=== PATIENT | female | born 1965 | race Two or more races ===

== ENCOUNTER 2019-11-21 18:43 | Inpatient (IN) | payer OTHER ==
[~2019-11-21] VITALS: Ht 147.3 cm; Wt 49.0 kg
--- NOTE | 2019-11-21 18:44 | NUR ---
IV LINE ESTABLISHED BLOOD DRAWN AND SENT TO LAB.
--- NOTE | 2019-11-21 18:45 | NUR ---
AT BEDSIDE FOR EVAL.
--- NOTE | 2019-11-21 18:52 | NUR ---
PT REC'D TO ER C/O DIZZNESS WHILE EATING DINNER SLURRED SPEECH WAS BROUGHT TO THE ER ALFRED DORSEY WITH PATIENT ABLE TO RESPOND . IV STARTED 19G RT AC LABS DRAWN SENT TO LAB AWAITING EVALUATION BY ER PROVIDER.
[2019-11-21 18:58] LABS: BASOPHILS # (AUTO) 0.1 /CMM (0.0-0.2); BASOPHILS % (AUTO) 1.2 % (0.0-2.0); EOSINOPHILS % (AUTO) 4.6 % (0.0-6.0); HEMATOCRIT 38 % (33-45); HEMOGLOBIN 12.6 g/dL (11.5-14.8); LYMPHOCYTES # (AUTO) 2.4 /CMM (0.8-4.8); LYMPHOCYTES % (AUTO) 35.6 % (20.0-44.0); MEAN CORPUSCULAR HGB CONC 33 g/dl (31.0-36.0); MEAN CORPUSCULAR VOLUME 90 fL (82-100); MONOCYTES # (AUTO) 0.5 /CMM (0.1-1.30); MONOCYTES % (AUTO) 6.7 % (2.0-12.0); NEUTROPHILS # (AUTO) 3.5 /CMM (1.8-8.9); NEUTROPHILS % (AUTO) 51.9 % (43.0-81.0); PLATELET COUNT (AUTO) 254 /CMM (150-450); WHITE BLOOD COUNT (AUTO) 6.7 K/uL (4.3-11.0)
[2019-11-21] MEDS ORDERED: PROGESTERONE PO (19:09)
--- NOTE | 2019-11-21 19:17 | NUR ---
PT REASSESSED. PT HAS NO MEDICAL COMPLAINTS AT THIS TIME. PT AAOX4, VSS, RESPIRATIONS EVEN AND UNLABORED ON RA W/ NAD NOTED. PT CONNECTED TO THE WOODS BOSS AND POX.
--- NOTE | 2019-11-21 19:18 | NUR ---
PT HAS NO NEUROLOGICAL DEFICITS.
[2019-11-21 19:21] LABS: CALCIUM, SERUM 9.3 mg/dL (8.5-10.1); CARBON DIOXIDE 29 mmol/L (21-32); CHLORIDE 100 mmol/L (98-107); CREATININE 0.7 mg/dL (0.6-1.3); GLUCOSE 172 mg/dL (74-106); POTASSIUM 3.4 mmol/L (3.5-5.1); SODIUM SERUM 138 mmol/L (136-145); UREA NITROGEN, BLOOD 12 mg/dL (7-18)
--- NOTE | 2019-11-21 19:21 | NUR ---
CALLED LAB FOR CT
[2019-11-21 19:27] LABS: ALANINE AMINOTRANSFERASE 21 U/L (12-78); ALKALINE PHOSPHATASE 63 U/L (46-116); ASPARTATE AMINOTRANSFERASE 14 U/L (15-37); BILIRUBIN,DIRECT 0.1 mg/dL (0.0-0.2); BILIRUBIN,TOTAL 0.2 mg/dL (0.2-1.0); TOTAL PROTEIN, SERUM 7.7 g/dL (6.4-8.2)
[2019-11-21] MEDS ORDERED: IV NS 0.9% 250 ML IV ONE (19:29)
[2019-11-21] MEDS ORDERED: IOHEXOL-350 100 ML VIAL IV ONE (19:29)
--- NOTE | 2019-11-21 19:34 | NUR ---
CALLED RADIOLOGY FOR CT
--- NOTE | 2019-11-21 19:35 | NUR ---
COVID SWAB COLLECTED AND SENT TO LAB
--- NOTE | 2019-11-21 19:38 | NUR ---
PT TAKEN TO RADIOLOGY FOR CT
--- NOTE | 2019-11-21 19:56 | NUR ---
PT BACK FROM RADIOLOGY
--- NOTE | 2019-11-21 20:54 | NUR ---
LAB CALLED COVID NEGATIVE
--- NOTE | 2019-11-21 20:57 | NUR ---
DR TINEO PAGED PER DR MONTES
[2019-11-21] MEDS ORDERED: CLOPIDOGREL BISULFATE 75 MG TABLET PO ONE (21:30)
[2019-11-21] MEDS ORDERED: CLOPIDOGREL BISULFATE 75 MG TABLET ONE (21:36)
--- NOTE | 2019-11-21 21:49 | NUR ---
PT TRANSFERRED TO ROOM IN STABLE CONDITION
[2019-11-21 21:50] VITALS: BP 104/57
--- NOTE | 2019-11-21 21:55 | NUR ---
RN ADMITTING NOTES PATIENT RECEIVED FROM ER VIA REUCLID ACCOMPANIED BY ER STAFF. PATIENT A/O X 4, AMBULATORY, STABLE ON RA. VITAL TAKEN. 104/ 57, HR 70, RR 18, T 98.1, O2SAT 100%. BELONGINGS ACCOUNTED FOR. SKIN ASSESSMENT DONE. TELE MONITOR PLACED. PATIENT ORIENTED TO ROOM AND STAFF. IV LOCATED ON R AC #18 PATENT AND INTACT. SAFETY PRECAUTIONS IN PLACE WITH BED IN LOWEST POSITION, CALL LIGHT WITHIN REACH, BREAKS ON, SIDE RAILS UP. WILL CONTINUE TO MONITOR THROUGHOUT THE NIGHT.
[2019-11-21] MEDS ORDERED: ACETAMINOPHEN 325 MG TABLET PO PRN (22:00)
[2019-11-21] MEDS ORDERED: SIMVASTATIN 20 MG TABLET PO SCH (22:00)
[2019-11-21] MEDS ORDERED: IV NS 0.9% 1,000 ML IV PRN (22:00)
[2019-11-21] MEDS: BLOOD SUGAR DIAGNOSTIC 1 EACH STRIP IN SCH (22:18)
[2019-11-22] VITALS: BP 96/56
[2019-11-22 04:00] VITALS: BP 92/58
[2019-11-22 06:29] LABS: APPEARANCE,URINE SL CLOUDY (CLEAR); BILIRUBIN,URINE NEGATIVE (NEGATIVE); BLOOD, URINE TRACE Ery/uL (NEGATIVE); COLOR,URINE YELLOW (YELLOW); KETONES,URINE NEGATIVE (NEGATIVE); LEUKOCYTE ESTERASE ,URINE NEGATIVE (NEGATIVE); NITRITE, URINE NEGATIVE (NEGATIVE); PH,URINE 7.5 (5.0-8.0); PROTEIN,URINE NEGATIVE (NEGATIVE); UGLUCOSE NEGATIVE (NEGATIVE); UROBILINOGEN,URINE 0.2 EU/dL (0.2)
--- NOTE | 2019-11-22 07:13 | NUR ---
RN CLOSING NOTES PATIENT IN BED RESTING A/O X 4. STABLE ON RA WITH BREATHING EVEN AND UNLABORED, NO SOB NOTED. NO SIGNS OF ACUTE DISTRESS. NO COMPLAINTS OF PAIN OR DISCOMFORT AT THE MOMENT. TELE MONITOR READING SR. IV LOCATED ON R AC #18 RUNNING NS @ 75 ML/HR. PATIENT KEPT NPO THROUGHOUT THE NIGHT. ALL NEEDS ATTENDED TO. SAFETY PRECAUTIONS IN PLACE WITH BED IN LOWEST POSITION, CALL LIGHT WITHIN REACH, BREAKS ON, SIDE RAILS UP. WILL ENDORSE TO ONCOMING SHIFT ABOUT SHRUTHI.
[2019-11-22] MEDS: BLOOD SUGAR DIAGNOSTIC 1 EACH STRIP IN SCH ×2 (07:14→12:02)
[2019-11-22 08:00] VITALS: BP 100/70
--- NOTE | 2019-11-22 08:00 | NUR ---
rn notes received patient in the bed a/o x4, stable , tele monitor sr-[id number], refused pain. neuro check done, v/s taken wnl. Infusing ns at 75 ml/hr, patient ambulatory self care. safety precaution maintained all the time.
--- NOTE | 2019-11-22 08:00 | NUR ---
rn notes administered Plavix po as scheduled. per hospitalist OK to administer medication after patient passing nursing swallow test.
[2019-11-22 08:20] LABS: RBC,URINE 0-2 /HPF (0-2)
[2019-11-22 08:21] LABS: BACTERIA,URINE Rare /HPF (None Seen); SQUAMOUS EPITHELIAL CELL,UR Few /HPF (None Seen); WBC,URINE 0-2 /HPF (0-3)
[2019-11-22 08:30] LABS: BASOPHILS # (AUTO) 0.1 /CMM (0.0-0.2); BASOPHILS % (AUTO) 1.2 % (0.0-2.0); EOSINOPHILS % (AUTO) 9.1 % (0.0-6.0); HEMATOCRIT 37 % (33-45); LYMPHOCYTES # (AUTO) 1.6 /CMM (0.8-4.8); LYMPHOCYTES % (AUTO) 34.8 % (20.0-44.0); MEAN CORPUSCULAR HGB CONC 32 g/dl (31.0-36.0); MEAN CORPUSCULAR VOLUME 90 fL (82-100); MONOCYTES # (AUTO) 0.3 /CMM (0.1-1.30); MONOCYTES % (AUTO) 6.5 % (2.0-12.0); NEUTROPHILS # (AUTO) 2.3 /CMM (1.8-8.9); NEUTROPHILS % (AUTO) 48.4 % (43.0-81.0); PLATELET COUNT (AUTO) 244 /CMM (150-450); RED BLOOD CELL COUNT(AUTO) 4.18 MIL/uL (4.0-5.2); WHITE BLOOD COUNT (AUTO) 4.7 K/uL (4.3-11.0)
--- NOTE | 2019-11-22 08:46 | NUR ---
rn notes patient getting ECHO at this time.
[2019-11-22 08:52] LABS: CARBON DIOXIDE 27 mmol/L (21-32); CHLORIDE 109 mmol/L (98-107); CREATININE 0.6 mg/dL (0.6-1.3); GLUCOSE 96 mg/dL (74-106); POTASSIUM 4.2 mmol/L (3.5-5.1); SODIUM SERUM 143 mmol/L (136-145); UREA NITROGEN, BLOOD 8 mg/dL (7-18)
[2019-11-22] MEDS ORDERED: CLOPIDOGREL BISULFATE 75 MG TABLET PO SCH (09:00)
[2019-11-22 09:02] LABS: CHOLESTEROL 202 mg/dL (<200); HDL CHOLESTEROL 79 mg/dL (40-60); LDL 103 mg/dL (0-99); THYROID STIMULATING HORMONE 1.751 uIU/mL (0.358-3.74); TRIGLYCERIDES 47 mg/dL (30-150)
--- NOTE | 2019-11-22 09:35 | NUR ---
rn notes per nuclear radiation engineer Dr Kumar [place] [facility] [place], regular diet at this time.
--- NOTE | 2019-11-22 10:45 | NUR ---
Bareback Rider consult for patient requested by Liat Servin NP per stroke protocol. Patient is alert and oriented x4. Patient was receptive to speaking with this SW. Per patient, she was brought by her to [facility] ER yesterday, 11/20 because during dinner she was feeling dizzy and had blurred vision. Patient is a 54-year-old female. Patient confirmed demographics on face sheet including date of and address. Patient did correct this SW for emergency contact/ [place] contact information . Patient joked stating This day in age we dont have phone numbers memorized, thank you for checking this with me. 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 Per patient, she lives at home with her child, , and mother. Per patient, she does drink alcohol "socially" about 2-3 drinks a week if that. Patient denies drug and cigarette use. Patient denies mental health diagnosis. Patient denies auditory and visual hallucinations. Patient denies suicidal and homicidal ideation. SW conducted PHQ9 on this patient. Patient scored a zero. SW to provide patient with stroke empowerment information for the patient. SW to remain available for all needs regarding this patient.
--- NOTE | 2019-11-22 12:25 | NUR ---
rn notes patient picking crew supervisor for MRI at this time, consent, and check list done.
--- NOTE | 2019-11-22 16:34 | NUR ---
TOWER HOIST OPERATOR NOTES PATIENT DISCHARGE AT THIS TIME GOING HOME, STABLE, V/S WNL, REFUSED PAIN. MED RECONCILIATION AND DISCHARGE ORDER REVIEWED AND EXPLAINED , ALSO STROKE EDUCATION PROVIDED.PATIENT VERBALIZED UNDERSTANDING. PATIENT SIGN PAPERWORK, PRESCRIPTION ELECTRONICALLY DONE BY HOSPITALIST. PATIENT HAS BELONGING WITH HER. WILL FOLLOW PCP. ESCORTED PATIENT TO THE LOBBY FOR SAFETY. PATIENT LASTING ROOM SUPERVISOR BY .
[2019-11-22] MEDS ORDERED: CLOP75TA15 PO (16:35)
[2019-11-22] MEDS ORDERED: ATOR20TA PO (16:35)
== END 2019-11-22 16:30 | disposition home or self-care (01) | DRG 69 ==
LOC: ER 18:45 → TELE 21:25 → MED 11-22 09:59
PROVIDERS: ADMIT Nurse Practitioner Acute Care; ATTEND Nurse Practitioner Acute Care
DX: G45.9 Transient cerebral ischemic attack, unspecified (principal); R73.9 Hyperglycemia, unspecified; J45.909 Unspecified asthma, uncomplicated; G90.8 Other disorders of autonomic nervous system; R29.700 NIHSS score 0; R40.2412 Glasgow coma scale score 13-15, at arrival to emergency department
CPT/HCPCS: 36415; 70450-TC; 70496-TC; 70498-TC; 70551-TC; 80048-TC; 80061-TC; 80076-TC; 81000-TC; 82962-TC; 83880; 84443-TC; 84478-TC; 84484-TC; 85025-TC; 85730-TC; 87081-TC; 92526; 92611-TC; 93307-TC; 97116-TC; 97530-TC; C9803-CS; G0378; J7030; J7050; Q9967

== ENCOUNTER 2024-05-26 06:36 | Day surgery (SDC) | payer OTHER ==
[~2024-05-26 06:36] MED LIST: ATOR20TA PO; CLOP75TA15 PO; PROGESTERONE PO
[2024-05-26] MEDS ORDERED: BUPIVACAINE 0.5 % PF 150 MG/30 ML VIAL ONE (07:15)
[2024-05-26] MEDS ORDERED: EPINEPHRINE (1:1000) 1 MG/ML AMPUL ONE (07:16)
[2024-05-26] MEDS ORDERED: FENTANYL PF 100MCG/2ML AMPUL ONE ×2 (07:34→07:35)
[2024-05-26] MEDS ORDERED: MIDAZOLAM HCL 2 MG/2ML VIAL ONE (07:34)
[2024-05-26] MEDS ORDERED: ROCURONIUM BROMIDE 50 MG/5 ML ONE (07:35)
[2024-05-26] MEDS ORDERED: ROPIVACAINE HCL 0.5% 5 MG/ML 30ML VIAL ONE (07:49)
[2024-05-26] MEDS ORDERED: ONDANSETRON HCL/PF 4 MG/2 ML VIAL IVP PRN (09:00)
[2024-05-26] MEDS ORDERED: MORPHINE SULFATE INJ 10 MG/ML DISP.SYRIN IV PRN (09:00)
[2024-05-26] MEDS ORDERED: MEPERIDINE HCL/PF 50 MG/ML DISP.SYRIN IV PRN (09:00)
== END 2024-05-26 11:25 | disposition home or self-care (01) ==
LOC: DS 06:36
PROVIDERS: ATTEND Student in an Organized Health Care Education/Training Program
DX: M75.01 Adhesive capsulitis of right shoulder (principal); M75.41 Impingement syndrome of right shoulder; M25.811 Other specified joint disorders, right shoulder; S43.431A Superior glenoid labrum lesion of right shoulder, initial encounter; M65.911 Unspecified synovitis and tenosynovitis, right shoulder; M81.0 Age-related osteoporosis without current pathological fracture; E78.5 Hyperlipidemia, unspecified; J45.909 Unspecified asthma, uncomplicated; F32.9 Major depressive disorder, single episode, unspecified; Z91.040 Latex allergy status; Z88.8 Allergy status to other drugs, medicaments and biological substances; X58.XXXA Exposure to other specified factors, initial encounter; Y93.89 Activity, other specified; Y92.89 Other specified places as the place of occurrence of the external cause; Y99.8 Other external cause status
CPT/HCPCS: 29821; 29823; 64415; A4217; A4565; J0171; J0330; J0690; J1100; J2250; J2405; J2704; J2795; J3010; J3490; J7030